=== PATIENT | female | born 1995 | race Two or more races ===

== ENCOUNTER 2019-02-18 14:22 | Emergency (ER) | payer OTHER ==
[~2019-02-18] VITALS: Ht 165.1 cm; Wt 56.5 kg
[2019-02-18] MEDS ORDERED: DIPHENHYDRAMINE 50 MG/ML, 1ML IVPush ONE (15:00)
[2019-02-18] MEDS ORDERED: DIPHENHYDRAMINE 50 MG/ML, 1ML ONE (15:21)
[2019-02-18 15:27] LABS: BASOPHILS # (AUTO) 0.03 x10^3/uL (0-0.1); BASOPHILS % (AUTO) 0 % (0-1); EOSINOPHILS # (AUTO) 0.08 x10^3/uL (0-0.4); EOSINOPHILS % (AUTO) 1 % (1-7); LYMPHOCYTES # (AUTO) 2.55 x10^3/uL (1-3.4); LYMPHOCYTES % (AUTO) 31 % (22-44); MD NO; MEAN CORPUSCULAR HEMOGLOBIN 27.5 pg (27.0-34.8); MEAN CORPUSCULAR HGB CONC 32.2 g/dL (32.4-35.8); MEAN CORPUSCULAR VOLUME 85.4 fL (80-100); MEAN PLATELET VOLUME 8.5 fL (7.4-10.4); MONOCYTES # (AUTO) 0.38 x10^3/uL (0.2-0.8); MONOCYTES % (AUTO) 5 % (2-9); NEUTROPHILS # (AUTO) 5.18 x10^3/uL (1.8-6.8); NEUTROPHILS % (AUTO) 63 % (42-75); PLATELET COUNT 356 x10^3/uL (130-400); RED BLOOD COUNT 5.26 x10^6/uL (3.82-5.3); RED CELL DISTRIBUTION WIDTH 13.8 % (9.6-15.2)
[2019-02-18] MEDS ORDERED: SODIUM CHLORIDE 0.9% 1,000ML IVBOLUS ONE (15:30)
[2019-02-18 15:38] LABS: ALANINE AMINOTRANSFERASE 18 U/L (12-78); ALBUMIN 4.5 g/dL (3.4-5.0); ANION GAP 4 mmol/L (5-15); CALCIUM 9.7 mg/dL (8.5-10.1); CHLORIDE 107 mmol/L (98-107)
[2019-02-18 15:41] LABS: ALKALINE PHOSPHATASE 87 U/L (45-117); BILIRUBIN,TOTAL 0.4 mg/dL (0.2-1.0); TOTAL PROTEIN 8.4 g/dL (6.4-8.2)
[2019-02-18 15:45] LABS: CREATININE 0.95 mg/dL (0.55-1.02)
[2019-02-18 16:33] LABS: MICROSCOPIC NOT IND
[2019-02-18 16:37] LABS: CULTURE INDICATED? NO
[2019-02-18 17:28] VITALS: BP 112/71
== END 2019-02-18 17:31 | disposition home or self-care (01) ==
LOC: ED 16:09
DX: K29.00 Acute gastritis without bleeding (principal); G43.909 Migraine, unspecified, not intractable, without status migrainosus; Z86.73 Personal history of transient ischemic attack (TIA), and cerebral infarction without residual deficits
CPT/HCPCS: 36415; 80053; 81003; 83690; 84702; 85025; 96361; 96374; 99283; J1200; J7030

== ENCOUNTER 2019-05-03 20:29 | Emergency (ER) | payer OTHER ==
[~2019-05-03] VITALS: Ht 165.1 cm; Wt 55.4 kg
[2019-05-03 20:33] VITALS: BP 109/69
== END 2019-05-03 21:47 | disposition left against medical advice (07) ==
LOC: ED 21:41
DX: K08.89 Other specified disorders of teeth and supporting structures (principal); Z53.21 Procedure and treatment not carried out due to patient leaving prior to being seen by health care provider